=== PATIENT | male | born 1980 | race Asian ===

== ENCOUNTER 2022-07-09 03:50 | Emergency (ER) | payer OTHER ==
[~2022-07-09] VITALS: Ht 180.3 cm; Wt 88.5 kg
[2022-07-09 05:50] VITALS: BP 133/92
[2022-07-09] MEDS ORDERED: CEPH500C2 PO (06:03)
[2022-07-09] MEDS ORDERED: SULF1TAB48 PO (06:03)
== END 2022-07-09 06:15 | disposition home or self-care (01) ==
LOC: ER 03:53
DX: L03.012 Cellulitis of left finger (principal); I50.9 Heart failure, unspecified; F17.200 Nicotine dependence, unspecified, uncomplicated; Z79.899 Other long term (current) drug therapy

== ENCOUNTER 2022-08-20 14:32 | Emergency (ER) | payer OTHER ==
[~2022-08-20] VITALS: Ht 177.8 cm; Wt 86.2 kg
[~2022-08-20 14:32] MED LIST: CEPH500C2 PO; SULF1TAB48 PO
--- NOTE | 2022-08-20 14:50 | NUR ---
RECEIVED PT 42 YRS MALE CAME FROM HOME BY FRIND c/o genralized weekness respirtion spont and easy pt asleepy responded when called name
--- NOTE | 2022-08-20 15:00 | NUR ---
INSERTED ango catheter g [address] on rt ac blood drow and sent to lab
[2022-08-20 15:10] LABS: BASOPHILS % (AUTO) 0.8 % (0.0-2.0); HEMATOCRIT 51 % (39-51); HEMOGLOBIN 16.3 g/dL (13.5-17.5); LYMPHOCYTES # (AUTO) 1.7 K/uL (0.8-4.8); LYMPHOCYTES % (AUTO) 26.5 % (20.0-44.0); MEAN CORPUSCULAR HGB CONC 32 g/dl (31.0-36.0); MEAN CORPUSCULAR VOLUME 96 fL (80-96); MONOCYTES # (AUTO) 0.6 K/uL (0.1-1.30); MONOCYTES % (AUTO) 8.9 % (2.0-12.0); NEUTROPHILS # (AUTO) 3.9 K/uL (1.8-8.9); NEUTROPHILS % (AUTO) 61.8 % (43.0-81.0); PLATELET COUNT (AUTO) 217 K/uL (150-450); RED BLOOD CELL COUNT(AUTO) 5.28 MIL/uL (4.5-6.0); WHITE BLOOD COUNT (AUTO) 6.3 K/uL (4.3-11.0)
[2022-08-20 15:27] LABS: CALCIUM, SERUM 8.9 mg/dL (8.5-10.1); CARBON DIOXIDE 30 mmol/L (21-32); CHLORIDE 105 mmol/L (98-107); CREATININE 1.5 mg/dL (0.6-1.3); GLUCOSE 132 mg/dL (74-106); POTASSIUM 4.2 mmol/L (3.5-5.1); SODIUM SERUM 142 mmol/L (136-145); UREA NITROGEN, BLOOD 20 mg/dL (7-18)
[2022-08-20 15:40] LABS: ALANINE AMINOTRANSFERASE 58 U/L (12-78); ALBUMIN 3.8 g/dL (3.4-5.0); ALKALINE PHOSPHATASE 102 U/L (46-116); ASPARTATE AMINOTRANSFERASE 40 U/L (15-37); BILIRUBIN,DIRECT 0.2 mg/dL (0.0-0.2); BILIRUBIN,TOTAL 0.8 mg/dL (0.2-1.0); TOTAL PROTEIN, SERUM 6.6 g/dL (6.4-8.2)
[2022-08-20 15:44] LABS: ACETAMINOPHEN 0 ug/ml (10-30); ALCOHOL, BLOOD < 3 mg/dL (0-0)
--- NOTE | 2022-08-20 16:31 | NUR ---
PT ASLEEPY NO SOB
[2022-08-20] MEDS ORDERED: FUROSEMIDE 20 MG/2 ML VIAL IV ONE (17:00)
--- NOTE | 2022-08-20 17:32 | NUR ---
PT ASLEEPY UNABLE TO FULLY AWAKE
[2022-08-20] MEDS ORDERED: FUROSEMIDE 40 MG/4 ML VIAL ONE (18:09)
--- NOTE | 2022-08-20 18:10 | NUR ---
Sanjuanita mcintosh in [facility] - 08/20/22 at 1929 by DOMINIQUE PT VOIDING UA SENT TO LAB
--- NOTE | 2022-08-20 18:19 | NUR ---
PT ASPEEPY REFUSED TO GIVE URINE AND REFUSED F/C AT THIS TIME
--- NOTE | 2022-08-20 18:35 | NUR ---
PT VODING UA SENT TO LAB
--- NOTE | 2022-08-20 19:00 | NUR ---
CATRACHITA MOMIN SENT TO LAB
[2022-08-20 19:23] LABS: BILIRUBIN,URINE NEGATIVE (NEGATIVE); COLOR,URINE YELLOW (YELLOW); LEUKOCYTE ESTERASE ,URINE NEGATIVE (NEGATIVE); NITRITE, URINE NEGATIVE (NEGATIVE); PROTEIN,URINE TRACE mg/dl (NEGATIVE); UGLUCOSE 1+ mg/dL (NEGATIVE); UROBILINOGEN,URINE 0.2 EU/dL (0.2)
--- NOTE | 2022-08-20 19:25 | NUR ---
HAND OFF EDA RN
[2022-08-20 19:37] LABS: BACTERIA,URINE None seen /HPF (None Seen); MUCUS,URINE Few /LPF (None Seen); RBC,URINE 0-2 /HPF (0-2); SQUAMOUS EPITHELIAL CELL,UR 0-2 /HPF (None Seen); WBC,URINE 0-2 /HPF (0-3)
--- NOTE | 2022-08-20 20:00 | NUR ---
Patient discharged to home in stable condition. Written and verbal after care instructions given. Patient verbalizes understanding of instruction.
--- NOTE | 2022-08-20 20:00 | NUR ---
IV MOHSEN REMOVED
[2022-08-20 20:01] VITALS: BP 142/102
== END 2022-08-20 20:01 | disposition home or self-care (01) ==
LOC: ER 14:40
DX: R41.82 Altered mental status, unspecified (principal); F12.90 Cannabis use, unspecified, uncomplicated; I50.9 Heart failure, unspecified; E11.9 Type 2 diabetes mellitus without complications; F17.200 Nicotine dependence, unspecified, uncomplicated; Z20.822 Contact with and (suspected) exposure to COVID-19
CPT/HCPCS: 99285; 96374; 93005; 71045; 85025; 80048; 83605; 80076; 81001; 36415; 84484 ×2; 83880; 82962; 87426; 80143; 80320; 80307; J1940; C9803; G0480

== ENCOUNTER 2022-08-27 20:11 | Emergency (ER) | payer OTHER ==
[~2022-08-27] VITALS: Ht 180.3 cm; Wt 88.5 kg
[2022-08-27 20:56] VITALS: BP 153/92
--- NOTE | 2022-08-27 21:00 | NUR ---
BIBS. L HAND 4TH DIGIT. SCABBED WOUND AT THE TIP OF THE FINGER. PATIENT IS AMBULATORY, [id number]. ABLE TO MAKE NEEDS KNOWN.
[2022-08-27] MEDS ORDERED: SULF1TAB48 PO ×2 (21:19→21:30)
[2022-08-27] MEDS ORDERED: CEPH500T PO ×2 (21:19→21:30)
--- NOTE | 2022-08-27 21:31 | NUR ---
Patient discharged to home in stable condition. Written and verbal after care instructions given. Patient verbalizes understanding of instruction.
== END 2022-08-27 21:33 | disposition home or self-care (01) ==
LOC: ER 20:18
DX: L03.012 Cellulitis of left finger (principal); I11.0 Hypertensive heart disease with heart failure; I50.9 Heart failure, unspecified; F17.200 Nicotine dependence, unspecified, uncomplicated; Z79.899 Other long term (current) drug therapy